=== PATIENT | female | born 1995 | race Caucasian/White ===

== ENCOUNTER → 2022-01-19 | Outpatient (CLI) | payer BC, OTHER ==
[~2022-01-19] MED LIST: IBUPROFEN600 MG PO
== END ==
LOC: KOH-I 11:00
DX: R10.13 Epigastric pain (principal)
CPT/HCPCS: 76700

== ENCOUNTER 2022-03-09 06:45 | Emergency (ER) | payer BC, OTHER ==
[2022-03-09 07:39] LABS: HEMOGLOBIN 12.9 gm/dl (12.3-15.3); RED BLOOD COUNT 4.12 M/UL (4.00-5.10); WHITE BLOOD COUNT 6.1 K/UL (4.5-11.0)
[2022-03-09 08:06] LABS: BUN/CREATININE RATIO 11 (0-10)
== END 2022-03-09 11:55 | disposition home or self-care (01) ==
LOC: ER1 06:45
PROVIDERS: Family Medicine
DX: R07.89 Other chest pain (principal)
CPT/HCPCS: 71045; 80048; 82550; 82553; 84484; 84703; 85025; 93005; 99284